=== PATIENT | male | born 2000 | race Caucasian/White ===

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

== ENCOUNTER 2022-07-05 22:56 | Emergency (ER) | payer MEDICARE, MEDICAID ==
[2022-07-06 00:43] VITALS: PULSE 99
== END 2022-07-06 02:08 | disposition home or self-care (01) ==
LOC: JP.ED 22:56
DX: G80.9 Cerebral palsy, unspecified (principal); G40.909 Epilepsy, unspecified, not intractable, without status epilepticus; P91.2 Neonatal cerebral leukomalacia; F79 Unspecified intellectual disabilities; D64.9 Anemia, unspecified; K21.9 Gastro-esophageal reflux disease without esophagitis; Z88.8 Allergy status to other drugs, medicaments and biological substances; Z79.899 Other long term (current) drug therapy
CPT/HCPCS: 36415; 80048; 80175; 80183; 85025; 99284